=== PATIENT | female | born 1985 | race Caucasian/White ===

== ENCOUNTER 2025-01-16 20:52 | Emergency (ER) | payer OTHER ==
[~2025-01-16] VITALS: Ht 170.2 cm; Wt 52.0 kg
--- NOTE | 2025-01-16 21:02 | ELECTROCARDIOGRAPH REPORT ---
[facility] Test Date: 2025-01-16 Test Time: 20:59:31 Pat Name: DAVID PAREKH Department: EMERGENCY ROOM Room: Gender: F Arch [employer] Operator: ARLETH : 1985 Requested By: JOSSUE BADILLO Order Number: [id number] Reading MD: Dr. JAMES Franklin Measurements Intervals [place] Rate: 102 P: 84 MA: 129 QRS: 73 QRSD: 86 T: 45 QT: 398 QTc: 519 Interpretive Statements Sinus tachycardia Borderline repolarization abnormality Prolonged QT interval Baseline wander in lead(s) V5 Electronically Signed On 01-17-2025 18:51:[address] JAMES Franklin Please click the below link to view image of tracing.
--- NOTE | 2025-01-16 21:30 | RADIOLOGY REPORT ---
CHEST RADIOGRAPH Indication: CP Technique: Single frontal view of the chest was obtained Comparison: None FINDINGS: Lines and Tubes: None Lungs: No focal consolidation. Pleura: No effusion. No pneumothorax. Cardiomediastinal contours: Unremarkable Bones: No acute osseous abnormality. IMPRESSION: No acute cardiopulmonary disease.
[2025-01-16 21:43] LABS: MEAN PLATELET VOLUME 8.5 FL (7.4-10.4); RED CELL DISTRIBUTION WIDTH 14.8 % (11.5-14.5)
[2025-01-16 21:58] LABS: CREATININE 0.61 MG/DL (0.40-0.90); PRO BRAIN NATRIURETIC PEPTIDE < 30 PG/ML (0-125); TOTAL CARBON DIOXIDE 27.7 MMOL/L (24-32); eCRCL 102 ML/MIN; eGFR > 90 ML/MIN
--- NOTE | 2025-01-16 23:12 | Physician Documentation ---
History of Present Illness ~ Chief Complaint: Chest Pain Stated Complaint: CP/ARM NUMBNESS Time Seen by MD: 21:36 Source: patient Mode of Arrival: POV Exam Limitations: no limitations HPI Mrs. Monreal is a 39 y/o female with no pertinent PMHx who presents to the ED with c/o chest pain. She states that she was at home when she developed pain in the center of her chest that felt different from her indigestion and gastric upset. She states that she also felt chills and could not get warm. She states that she felt the discomfort in her back. No recent travel. No history of DVT/PE. No leg pain or swelling. She does not take medication on a daily basis. No recent febrile illness. Medication Reconciliation Allergies: Coded Allergies: No Known Allergies (Unverified , 01/16/25) Review of Systems All Other Systems at this time: Reviewed and Negative Physical Exam Vital Signs: RN Vital Signs have been reviewed: Yes, Temperature: 98.2, Source: Temporal, Heart Rate: 84, Respiratory Rate: 18, BP: 130/77, Pulse Oximetry: 100, Weight: 52.000 Oxygen Flow Rate: 0 Physical Exam GEN: Alert and oriented and in NAD. HEENT: NC/AT. PERRLA. No scleral icterus. MMM. No oral lesions. NECK: Supple. No JVD. CHEST: RRR. No M/G/T. LUNGS: CTA B. No W/R/R. ABD: Soft. NTND. + BS. No rebounding or guarding. BACK: No CVA TTP. EXT: No c/c/e. NEURO: Alert and oriented x 4. Cooperative. Sensorimotor intact x 4 extremities. Progress Results/Orders Results/Orders Orders - JOSSUE BADILLO MD Chest,Single View (01/16/25 21:15) Monitor (01/16/25 20:54) Saline Lock (01/16/25 20:54) Oxygen (01/16/25 20:54) Hs Troponin I W Calculations (01/16/25 22:54) Hs Troponin I W Calculations (01/16/25 23:54) Completed Orders - JOSSUE BADILLO MD Chest,Single View (01/16/25 21:15) Cbc/Diff (01/16/25 20:54) BMP (01/16/25 20:54) PBNP (01/16/25 20:54) Electrocardiogram (01/16/25 20:54) Hs Troponin I W Calculations (01/16/25 20:54) Vital Signs 01/16/25 01/16/25 01/16/25 21:06 22:14 22:26 Temp 98.2 Pulse 85 84 Resp 18 12 18 B/P (MAP) 139/96 130/77 (94) Pulse Ox 100 100 O2 Flow Rate 0 0 Laboratory Tests Test 01/16/25 21:21 White Blood Count 6.9 Red Blood Count 4.69 Hemoglobin 13.4 Hematocrit 40.3 Mean Corpuscular Volume 85.9 Mean Corpuscular Hemoglobin 28.6 Mean Corpuscular Hemoglobin Concent 33.2 Red Cell Distribution Width 14.8 H Platelet Count 285 Mean Platelet Volume 8.5 Neutrophils (%) (Auto) 59.4 Lymphocytes (%) (Auto) 29.3 Monocytes (%) (Auto) 7.9 Eosinophils (%) (Auto) 2.9 Basophils (%) (Auto) 0.5 Neutrophils # (Auto) 4.1 Lymphocytes # (Auto) 2.0 Monocytes # (Auto) 0.6 Eosinophils # (Auto) 0.2 Basophils # (Auto) 0.0 CBC Comment Sodium Level 140 Potassium Level 3.3 L Chloride Level 105 Carbon Dioxide Level 27.7 Anion Gap 7 L Blood Urea Nitrogen 9 Creatinine 0.61 Estimated GFR/1.73 m2 > 90 BUN/Creatinine Ratio 14.8 Glucose Level 115 H Calcium Level 8.6 Troponin I High Sensitivity 5 Pro-B-Type Natriuretic Peptide < 30 Albumin 3.8 Chemistry Comments EKG/XRAY/CT/US/VASC/MRI EKG : Intepreting Monitor?: Yes Indication: chest pain EKG: sinus tach EKG Blocks: none [place]: normal Hypertrophy: none Heart Score: Heart Score Response (Comments) Value History Slightly Suspicious 0 EKG Normal 0 Age <45 0 Risk Factors No known risk factors 0 Troponin Normal limit 0 Total 0 Medical Decision Making Additional information obtaine: N/A Findings While here in the ED, she remained hemodynamically normal with ABC's intact and in NAD. She is afebrile and nontoxic. I reviewed her EKG and it shows sinus tachycardia with a rate of 102 and a QTc of 519 but is otherwise unremarlable. Her TnI is within normal range. I reviewed her CXR and it does not show any signs to suggest acute pulmonary vascular congestion and her lungs are CTA bilaterally. Lytes are unremarkable and she is without a leukocytosis or left shift. I have low clinical suspicion for ACS. Her HEART score = 0 giving her a < 2% chance of a MACE at 6-weeks. PERC negative. I feel that she is safe for d/c home. She was given follow-up and return instructions. She voiced understanding and agreement with d/c instructions. Heart Score: 0 Differential Dx:Considerations: Include: angina, aortic dissection, chest wall pain, costochondritis, esophageal reflux/spasm, myocardial infarction, pericarditis, pleuritis, pneumonia, pneumothorax, pulmonary embolus Departure Disposition: 01 HOME / SELF CARE / HOMELESS Impression: Primary Impression: Chest pain Condition: Improved Discharge Instructions: Nonspecific Chest Pain, Adult Referrals: NO PRIMARY CARE PROVIDER (PCP) Comments Please call your physician to arrange follow-up within the next 24-48 hours. Return to the Emergency Department if there are any additional concerns. Education Educated: Patient Educated regarding: diagnosis, treatment ACF Form Admit Criteria Met or Not Met: NO Signature Scribe Signature: N/A Attestation: N/A JOSSUE BADILLO MD Jan 16, 2025 23:12
[2025-01-16 23:38] VITALS: BP 128/72; PULSE 82; RESP 18; TEMP 98.6; O2SAT 99
== END 2025-01-16 23:40 | disposition home or self-care (01) ==
LOC: ER 20:53
DX: R07.9 Chest pain, unspecified (principal)
CPT/HCPCS: 36415; 71045; 80048; 83880; 84484; 85025; 93005; 99285